=== PATIENT | male | born 1970 | race Caucasian/White ===

== ENCOUNTER 2023-04-02 16:37 | Emergency (ER) | payer BC ==
[~2023-04-02] VITALS: Ht 195.6 cm; Wt 99.7 kg
[2023-04-02 17:00] VITALS: BP 140/103
[2023-04-02] MEDS ORDERED: PREDNISONE50 MG PO ×2 (17:23→17:57)
[2023-04-02] MEDS ORDERED: ALL DAY10 MG PO ×2 (17:23→17:57)
[2023-04-02 17:27] VITALS: BP 140/103
[2023-04-03] MEDS ORDERED: PREDNISONE50 MG PO (17:13)
[2023-04-03] MEDS ORDERED: ALL DAY10 MG PO (17:13)
== END 2023-04-02 17:36 | disposition home or self-care (01) | DRG 916 ==
LOC: ED 16:37
DX: T78.40XA Allergy, unspecified, initial encounter (principal); X58.XXXA Exposure to other specified factors, initial encounter